=== PATIENT | male | born 1950 | race Caucasian/White ===

== ENCOUNTER 2021-02-21 11:13 | Observation (INO) | payer MEDICARE, SELFPAY ==
[2021-02-21] VITALS (15 sets, daily range): BP systolic 91–135; BP diastolic 58–84; PULSE 84–131; RESP 14–21; TEMP 36.6–36.8; O2SAT 95–99; BMI 15.7; BMI 20.9
--- NOTE | 2021-02-21 11:15 | HMH.EDGENADL ---
ED Disposition Clinical Impression: Failure to thrive Qualifiers: Failure to thrive age range: in adult Qualified Code(s): R62.7 - Adult failure to thrive Urinary tract infection Qualifiers: Urinary tract infection type: acute cystitis Hematuria presence: without hematuria Qualified Code(s): N30.00 - Acute cystitis without hematuria Disposition: Admitted As Inpatient Condition on Discharge: Good - Critical Care Critical Care Time: No Attestation: On , the high probability of a clinically significant, sudden or life threatening deterioration of the following system(s) required my full and direct attention, intervention and personal management. The time I documented below is in addition to time spent performing reported procedures but includes the following listed in this critical care notation. Medical Decision Making - Franco Inquiry Pt receiving controlled substance: No Vital Signs: 02/21/21 11:13 02/21/21 11:30 02/21/21 12:00 Temperature 97.9 F Temperature Source Oral Pulse Rate 84 Pulse Rate [Left] 112 H Respiratory Rate 19 20 14 Blood Pressure 109/67 L 98/67 L Blood Pressure [Right Arm] 135/84 Blood Pressure Mean [Right Arm] 101 Blood Pressure Source [Right Arm] Automatic Cuff 02 Sat by Pulse Oximetry 98 98 02/21/21 12:30 02/21/21 13:00 02/21/21 14:00 Temperature Temperature Source Pulse Rate 93 H 87 Pulse Rate [Left] Respiratory Rate 17 21 16 Blood Pressure 107/66 L 114/71 91/58 L Blood Pressure [Right Arm] Blood Pressure Mean [Right Arm] Blood Pressure Source [Right Arm] 02 Sat by Pulse Oximetry 97 02/21/21 14:30 02/21/21 15:30 02/21/21 16:00 Temperature Temperature Source Pulse Rate 88 86 98 H Pulse Rate [Left] Respiratory Rate 15 16 15 Blood Pressure 113/65 105/62 L 101/62 L Blood Pressure [Right Arm] Blood Pressure Mean [Right Arm] Blood Pressure Source [Right Arm] 02 Sat by Pulse Oximetry 98 95 02/21/21 16:30 Temperature Temperature Source Pulse Rate Pulse Rate [Left] Respiratory Rate 18 Blood Pressure 101/59 L Blood Pressure [Right Arm] Blood Pressure Mean [Right Arm] Blood Pressure Source [Right Arm] 02 Sat by Pulse Oximetry - Lab Data Lab Results 02/21/21 11:20: WBC 9.2, RBC 4.88, Hgb 14.4, Hct 45.4, MCV 93.0, MCH 29.6, MCHC 31.8, RDW 14.8, Plt Count 169, MPV 9.4, Neut % (Auto) 92.1 H, Lymph % (Auto) 4.8 L, [place] % (Auto) 3.0, Eos % (Auto) 0.0 L, Baso % (Auto) 0.0 L, Neut # (Auto) 8.5 H, Lymph # (Auto) 0.5 L, [place] # (Auto) 0.3, Eos # (Auto) 0.0, Baso # (Auto) 0.0, Total Counted 100, Neutrophils % (Manual) 89 H, Band Neutrophils % 1.0, Lymphocytes % (Manual) 7 L, Monocytes % (Manual) 2, Eosinophils % (Manual) 1, Platelet Estimate Normal 02/21/21 11:20: Sodium 150 H, Potassium 3.7, Chloride 106, Carbon Dioxide 29, Anion Gap 18.7 H, BUN 55 H, Creatinine 1.10, Estimated Creat Clear 45, Estimated GFR 66, Est GFR ( Amer) 80, Glucose 188 H, Calcium 9.7, Total Bilirubin 1.9 H, AST 61 H, ALT 28, Alkaline Phosphatase 134 H, Total Protein 8.4 H, Albumin 4.4, Globulin 4.0 H, Albumin/Globulin Ratio 1.1 02/21/21 13:30: Lactate 4.0 H 02/21/21 14:16: SARS-CoV-2 (PCR) Not detected, Influenza A Untype (PCR) Not detected, Influenza Type B (PCR) Not detected Result diagrams: 02/21/21 11:20 02/21/21 11:20 Orders (Tests/Meds): ED MEDICATIONS Generic Name Dose Route Start Last Admin Trade Name Freq PRN Reason Stop Dose Admin Carbidopa/Levodopa 1 each 02/21/21 21:00 Carbidopa/Levodopa 25/100mg Tablet PO 03/23/21 20:59 BID NGA Dextrose/Sodium Chloride 1,000 mls @ 150 mls/hr 02/21/21 17:13 02/21/21 17:20 Dextrose 5%-0.45% Nacl Iv Soln IV 03/23/21 17:12 75 mls/hr .[id number] NGA Administration Levofloxacin/Dextrose 500 mg in 100 mls @ 100 mls/hr 02/21/21 18:45 02/21/21 19:16 Levaquin 500mg/100ml Premix IV 03/07/21 18:44 100 mls/hr Q24H NGA Administration Ceftriaxone Sodium 1 gm/
--- NOTE | 2021-02-21 11:45 | XR_ITS ---
PROCEDURE: XR CHEST PORTABLE CLINICAL HISTORY: Infectious workup COMPARISON: CR XR CHEST PORTABLE from 03/22/2019 FINDINGS: The cardiomediastinal silhouette and pulmonary vascularity are within normal limits. The lungs are clear without infiltrates, suspicious nodules, or pleural effusions. No acute bony abnormalities. IMPRESSION: No acute findings. Dictated by: Suresh Ge MD 02/21/2021 13:04 Suresh Ge MD in OV 02/21/2021 13:04
[2021-02-21 12:04] LABS: Hematocrit 45.4 % (42.0-52.0); Hemoglobin 14.4 g/dL (14.1-18.0); Lymphocytes # 0.5 K/mm3 (0.7-4.5); Lymphocytes % 4.8 % (10-50); Mean Corpuscular HGB Conc 31.8 g/dL (31.8-35.4); Mean Corpuscular Hemoglobin 29.6 pg (27.0-31.2); Mean Platelet Volume 9.4 fl (7.4-10.4); Monocytes # 0.3 K/mm3 (0.1-1.0); Neutrophils # 8.5 K/mm3 (1.8-7.8); Neutrophils % 92.1 % (37.0-80.0); Platelet Count 169 K/mm3 (142-424); Potassium 3.7 mmoL/L (3.5-5.1); Red Blood Count 4.88 M/mm3 (4.60-6.20); Red Cell Distribution Width 14.8 % (11.5-17.5); White Blood Count 9.2 K/mm3 (4.8-10.8)
--- NOTE | 2021-02-21 12:05 | PC.NURSE ---
Rad at bedside
[2021-02-21 12:06] LABS: MANUAL DIFFERENTIAL MANUAL DIFFERENTIAL (MANUAL DIFF)
[2021-02-21 12:07] LABS: Alanine Aminotransferase 28 U/L (12-78); Albumin Level 4.4 g/dl (3.5-5.0); Albumin/Globulin Ratio 1.1 (1.1-1.8); Alkaline Phosphatase 134 U/L (38-126); Aspartate Amino Transferase 61 U/L (17-59); Bilirubin,Total 1.9 mg/dl (0.2-1.3); Blood Urea Nitrogen 55 mg/dl (9-20); Calcium 9.7 mg/dl (8.4-10.2); Carbon Dioxide 29 mmol/L (22.0-30.0); Creatinine Clearance Estimated 45 mL/min (50-200); Estimated Glomerular Filt Rate 66 ml/min (>60); GFR (African American) 80 ML/MIN (>60); Glucose 188 mg/dl (74-100); Total Protein,Serum 8.4 g/dl (6.3-8.2)
[2021-02-21 12:08] LABS: Sodium 150 mmol/L (136-145)
--- NOTE | 2021-02-21 12:08 | PC.NURSE ---
Sodium called to Yaa Fernandez, building drafter
--- NOTE | 2021-02-21 12:10 | PC.NURSE ---
attempted to straight cath patient. no urine output after insertion. MD notified and aware
[2021-02-21 12:11] LABS: Anion Gap 18.7 mEq/L (5-15); Chloride 106 mmol/L (98-107)
[2021-02-21 12:23] LABS: Eosinophils % 1 % (0-3); Lymphocytes % 7 % (10-50); Monocytes % 2 % (2-9); Neutrophils % 89 % (42-76); Total Cells Counted 100
[2021-02-21 12:24] LABS: Platelet Estimate Normal
--- NOTE | 2021-02-21 12:35 | CT_ITS ---
PROCEDURE: CT HEAD/BRAIN WO CON CLINICAL INDICATION: Concern for cancer / new seizure today COMPARISON: No exams were available for comparison TECHNIQUE: Axial images obtained. All CT scans at the facility use one or more dose reduction, viz: automated exposure control, ma/kV adjustment per patient size (including targeted exams where dose is matched to indication, i.e. head), or iterative reconstruction technique. FINDINGS: No midline shift, mass effect, intracranial hemorrhage, hydrocephalus, or extra-axial fluid collection is evident. There is generalized atrophy with hypoattenuation of the periventricular white matter consistent with microangiopathic changes.. Hypodensity in the right basal ganglia suggesting old lacunar infarction or choroidal fissure cyst the calvarium has an unremarkable appearance. No mastoid effusion. No sinus air-fluid level. IMPRESSION: No acute finding. If there is concern for metastatic disease then, CT with contrast or MRI may provide further evaluation. Dictated by: Suresh Ge MD 02/21/2021 13:01 Suresh Ge MD in [facility] 02/21/2021 13:01
--- NOTE | 2021-02-21 14:11 | PC.NURSE ---
SHAJI BUSH speaking with Dr Robledo
[2021-02-21 14:32] LABS: Coronavirus 19, PCR Not Detected (NotDetected); Influenza A, PCR Not Detected (NotDetected); Influenza B, PCR Not Detected (NotDetected)
--- NOTE | 2021-02-21 16:32 | PC.NURSE ---
report called to JACQUIE Sena
--- NOTE | 2021-02-21 16:57 | HMH.HP ---
*Admission Date: 02/21/21 <Yudy Jacobs - 02/21/21 17:20> *Chief complaint: possible seizure; weakness; FTT <Yudy Jacobs - 02/21/21 17:20> *History of present illness: Mr. Taylor is a 71-year-old male patient with a history of Parkinson's disease, frequent urinary tract infections, sudden weight loss,-year-old cognitive disorder, thrombocytopenia, headaches, anxiety, arthritis, depression, dysphagia, and hypokalemia who presented to [facility] emergency room with his daughter. His daughter states they were getting him in her out of the car when his legs gave way and he began to tremble as if he were having a seizure. She was afraid he was having a stroke. She states she has not been eating or drinking for the last 2 to 3 days but has had a decline over the past month with severe weight loss. He has complained of abdominal pain but has not had any vomiting and his bowels did continue to move. His daughter states that with x-ray and mass was observed. Attempt was made to do colonoscopy and she is unaware of the exact results of this. She was told that there was nothing to do for him. Her family doctor has been trying to get Mr. Taylor into the nursing facility for the last year. Patient denies chest pain, shortness of breath, but does indicate he has had some discomfort in his abdomen. With evaluation in the emergency room patient was found to be afebrile. Sodium was elevated with a elevated lactate at 4. Urinalysis is pending. Renal function also indicates dehydration. He was given a liter of IV fluids and a dose of Rocephin IV. Patient was admitted for further evaluation and treatment. Also to note chest x-ray showed no acute findings and CT of the head revealed no acute findings but generalized atrophy and suggestion of an old lacunar infarction. <Yudy Jacobs - 02/21/21 17:20> [facility] History Medical History: Reports:: Anxiety, Dementia, Depression Denies:: Coronary Artery Disease, Cerebrovascular Accident, Diabetes Mellitus Type 2, Myocardial Infarction <Wanda Jacobshy - 02/21/21 17:20> *Have you ever received a pneumonia vaccine?: No <Yudy Jacobs 02/21/21 17:20> *Have you received a flu vaccine this season?: No <Yudy Jacobs 02/21/21 17:20> Other Medical History: Reports: Other (Parkinson's disease) <Evens Robledo 02/21/21 21:15> Reports: Arthritis, Cataracts <Yudy Jacobs 02/21/21 17:20> Other Surgeries: Yes: No Previous Surgery <Yudy Jacobs 02/21/21 17:20> - *Social History Smoking Status: Never smoker <Yudy Jacobs 02/21/21 17:20> Alcohol Intake: never <Yudy Jacobs 02/21/21 17:20> *Occupational Status:: retired (lokie driver), [facility] 17:20> Housing: house <Yudy Jacobs 02/21/21 17:20> Household Members: family <Yudy Jacobs 02/21/21 17:20> *Travel in the last 8 weeks: None <[facility] 02/21/21 17:20> Family Hx:: Heart Attack <Yudy Jacobs 02/21/21 17:20> Review of Systems - Constitutional Reports fatigue, Reports lack of energy, Reports weight loss <Wanda Jacobshy 02/21/21 17:20> - Eyes Denies change in vision <Wanda Jacobshy 02/21/21 17:20> - ENT Reports difficulty swallowing, Denies ear pain, Denies sore throat <Wanda Jacobshy 02/21/21 17:20> - *Cardiovascular Denies chest pain, Denies shortness of breath, Denies leg swelling <[facility] 02/21/21 17:20> - *Respiratory Reports cough, Denies chest congestion, Denies shortness of breath <[facility] 02/21/21 17:20> - *Gastrointestinal Reports abdominal pain, Reports change in bowel habits, Reports difficulty swallowing, Reports incontinent of stools, Denies vomiting blood, Denies nausea, Denies vomiting <Yudy Jacobs 02/21/21 17:20> - *Genitourinary Reports urinary incontinence <Wanda Jacobshy 02/21/21 17:20> - *Musculoskeletal Reports abnormal walking, Reports joint pain, Reports decreased muscle mass, R
[2021-02-21 17:35] LABS: Reflex Lactic Add Lactic Reflex
[2021-02-21 17:57] LABS: Microscopic, Urine URINE MICROSCOPIC (MICROSCOPIC)
[2021-02-21 17:58] LABS: Appearance,Urine SL CLOUDY (Clear); Blood, Urine Negative (Negative); Color,Urine BROWN (Yellow); Glucose,Urine (UA) Negative (Negative); Ketones,Urine TRACE (Negative); Leukocyte Esterase,Urine 1+ (Negative); Nitrate,Urine POSITIVE (Negative); Protein,Urine Negative (Negative); Specific Gravity, Urine 1.025 (1.005-1.030)
[2021-02-21 18:14] LABS: Bilirubin,Urine 1+ (Negative)
[2021-02-21 18:15] LABS: Bacteria,Urine Trace /lpf; RBC,Urine Occasional #/hpf (0-3)
[2021-02-21 18:26] LABS: Lactic Acid Follow Up (RFLX 1) 1.1 mmol/L (0.7-2.1)
--- NOTE | 2021-02-21 19:10 | PC.NURSE ---
Pt arrived to floor at 1648. Pt speech is incoherent. Pts daughter/POA provided pt information. Daughter reports pt is very confused and is oriented x0 and she is unable to care for him appropriately. Pt has tolerated RA well with sats in high 90s. Daughter currently at bedside. Call light within reach. Will continue to monitor.
--- NOTE | 2021-02-21 19:27 | HMH.PHAVTE ---
[facility] Pharmacy VTE Monitoring - Patient Demographics Admission date: 02/21/21 Report Date: 02/21/21 Time: 19:27 Allergies/Adverse Reactions: Patient Allergies No Known Allergies Allergy (Verified 03/22/19 18:37) Height: 1.68 m Weight: 58.967 kg Patient Problems: Current Active Problems Dehydration (Acute) Failure to thrive (Acute) Abdominal pain (Acute) Parkinsons disease (Acute) Arthritis (Acute) Depression (Acute) - VTE Risk Labs: VTE Related Lab Results Hgb 14.4 g/dL (14.1-18.0) 02/21/21 11:20 Hct 45.4 % (42.0-52.0) 02/21/21 11:20 Plt Count 169 K/mm3 (142-424) 02/21/21 11:20 BUN 55 mg/dl (9-20) H 02/21/21 11:20 Creatinine 1.10 mg/dl (0.66-1.25) 02/21/21 11:20 Estimated Creat Clear 45 mL/min (50-200) 02/21/21 11:20 VTE Risk Level: Moderate Risk Clinical Trial Participant: No - Prophylaxis VTE Prophylaxis Ordered?: Yes Types of VTE Prophylaxis: TEDS Knee High
[2021-02-22 04:00] VITALS: BP 110/64; PULSE 66; RESP 18; TEMP 36.6; O2SAT 98
[2021-02-22 05:21] VITALS: BMI 20.9
--- NOTE | 2021-02-22 06:00 | PC.NURSE ---
Pt opens his eyes to name and has made some clear and some garbled speech. Pt did not pass bedside swallow eval d/t not following all commands. Pt has attempted to change position in bed a few times, staff assisted in turning pt q2. He has said pepsi and toes very clearly when asking of needs or if he is in pain. Ron cath draining drl ylw/brownish urine.
[2021-02-22 07:19] LABS: Basophils % 0.1 % (0.1-2.0); Eosinophils % 0.5 % (0.1-12.0); Hematocrit 34.1 % (42.0-52.0); Lymphocytes # 1.2 K/mm3 (0.7-4.5); Lymphocytes % 21.9 % (10-50); Mean Corpuscular HGB Conc 33.2 g/dL (31.8-35.4); Mean Corpuscular Hemoglobin 30.4 pg (27.0-31.2); Mean Corpuscular Volume 91.7 fl (80-94); Mean Platelet Volume 9.5 fl (7.4-10.4); Monocytes # 0.3 K/mm3 (0.1-1.0); Monocytes % 5.3 % (1.7-9.3); Neutrophils # 3.9 K/mm3 (1.8-7.8); Neutrophils % 72.2 % (37.0-80.0); Platelet Count 80 K/mm3 (142-424); Red Blood Count 3.72 M/mm3 (4.60-6.20); White Blood Count 5.4 K/mm3 (4.8-10.8)
[2021-02-22 07:37] LABS: Chloride 110 mmol/L (98-107); Sodium 144 mmol/L (136-145)
[2021-02-22 07:38] LABS: Potassium 3.2 mmoL/L (3.5-5.1)
[2021-02-22 07:40] LABS: Anion Gap 8.2 mEq/L (5-15); Blood Urea Nitrogen 40 mg/dl (9-20); Carbon Dioxide 29 mmol/L (22.0-30.0); Creatinine Clearance Estimated 58 mL/min (50-200); Estimated Glomerular Filt Rate 96 ml/min (>60); GFR (African American) 116 ML/MIN (>60)
[2021-02-22 07:41] LABS: Calcium 8.4 mg/dl (8.4-10.2); Glucose 96 mg/dl (74-100); Magnesium 1.8 mg/dl (1.6-2.3)
[2021-02-22 08:00] VITALS: BP 118/57; PULSE 54; RESP 16; TEMP 36.6; O2SAT 100
[2021-02-22 08:10] LABS: Thyroid Stimulating Hormone 0.22 uIU/mL (0.465-4.68)
[2021-02-22 08:16] LABS: Hemoglobin 11.3 g/dL (14.1-18.0)
--- NOTE | 2021-02-22 08:37 | HMH.ACPN2 ---
<Yudy Jacobs - Last Filed: 02/22/21 08:37> Internal Medicine - PN: Subj *Date: 02/22/21 *Time: 08:37 Interval history: Patient states he does not feel well. He denies chest pain. He states his breathing is doing well. He would like something to drink and something to eat. Per nursing: He has been confused. He is easier to understand but still speech is difficult. They are afraid to attempt to feed him or allow him to drink. He continues with a Ron catheter to bedside drainage. He has hematuria. Exam Vital signs and Labs for Last 24 Hours: Temp Pulse Resp BP Pulse Ox 97.9 F 66 18 110/64 98 02/22/21 04:00 02/22/21 04:00 02/22/21 04:00 02/22/21 04:00 02/22/21 04:00 Laboratory Results - last 24 hr 02/21/21 11:20: WBC 9.2, RBC 4.88, Hgb 14.4, Hct 45.4, MCV 93.0, MCH 29.6, MCHC 31.8, RDW 14.8, Plt Count 169, MPV 9.4, Neut % (Auto) 92.1 H, Lymph % (Auto) 4.8 L, [place] % (Auto) 3.0, Eos % (Auto) 0.0 L, Baso % (Auto) 0.0 L, Neut # (Auto) 8.5 H, Lymph # (Auto) 0.5 L, [place] # (Auto) 0.3, Eos # (Auto) 0.0, Baso # (Auto) 0.0, Total Counted 100, Neutrophils % (Manual) 89 H, Band Neutrophils % 1.0, Lymphocytes % (Manual) 7 L, Monocytes % (Manual) 2, Eosinophils % (Manual) 1, Platelet Estimate Normal 02/21/21 11:20: Sodium 150 H, Potassium 3.7, Chloride 106, Carbon Dioxide 29, Anion Gap 18.7 H, BUN 55 H, Creatinine 1.10, Estimated Creat Clear 45, Estimated GFR 66, Est GFR ( Amer) 80, Glucose 188 H, Calcium 9.7, Total Bilirubin 1.9 H, AST 61 H, ALT 28, Alkaline Phosphatase 134 H, Total Protein 8.4 H, Albumin 4.4, Globulin 4.0 H, Albumin/Globulin Ratio 1.1 02/21/21 13:30: Lactate 4.0 H 02/21/21 14:16: SARS-CoV-2 (PCR) Not detected, Influenza A Untype (PCR) Not detected, Influenza Type B (PCR) Not detected 02/21/21 17:50: Urine Color Brown, Urine Appearance Sl cloudy, Urine pH 6.0, Ur Specific [place] 1.025, Urine Protein Negative, Urine Glucose (UA) Negative, Urine Ketones Trace, Urine Blood Negative, Urine Nitrate Positive, Urine Bilirubin 1+ A, Urine Urobilinogen 4.0, Ur Leukocyte Esterase 1+ A, Urine RBC Occasional, Urine WBC 5-10, Ur Squamous Epith Cells None, Urine Bacteria Trace 02/21/21 18:06: Lactate 1.1 02/22/21 06:28: WBC 5.4 D, RBC 3.72 L, Hgb 11.3 L D, Hct 34.1 L, MCV 91.7, MCH 30.4, MCHC 33.2, RDW 15.0, Plt Count 80 L D, MPV 9.5, Neut % (Auto) 72.2, Lymph % (Auto) 21.9, [place] % (Auto) 5.3, Eos % (Auto) 0.5, Baso % (Auto) 0.1, Neut # (Auto) 3.9, Lymph # (Auto) 1.2, [place] # (Auto) 0.3, Eos # (Auto) 0.0, Baso # (Auto) 0.0 02/22/21 07:10: Sodium 144, Potassium 3.2 L, Chloride 110 H, Carbon Dioxide 29, Anion Gap 8.2, BUN 40 H D, Creatinine 0.80 D, Estimated Creat Clear 58, Estimated GFR 96, Est GFR ( Amer) 116 D, Glucose 96 D, Calcium 8.4, Phosphorus 2.0 L, Magnesium 1.8, TSH 0.22 L I & O for Last 24 hours: Intake & Output 02/19/21 02/20/21 02/21/21 02/22/21 11:59 11:59 11:59 11:59 Intake Total 1170 / 1170 Balance 1170 / 1170 Weight 110 lb 130 lb - Constitutional no acute distress Comments: Lying comfortably in the bed. - *Routine Respiratory Exam Present: diminished air movement (Posteriorly) - *Routine Cardiovascular Exam Present: irregular rhythm - *Routine Abdominal Exam Present: soft, normoactive bowel sounds, other (Scaphoid). Absent: tenderness - *Routine Extremities Exam Absent: edema, calf tenderness - *Routine Neurological Exam Present: alert. Absent: normal speech (Soft bit easier to understand.) Assessment and Plan (1) Dehydration Status: Acute Category: Medical Code(s): E86.0 - Dehydration (2) Failure to thrive Status: Acute Category: Medical (3) Abdominal pain Status: Acute Category: Medical Code(s): R10.9 - Unspecified abdominal pain (4) Parkinsons disease Status: Acute Category: Medical Code(s): G20 - Parkinson's disease (5) Arthritis Status: Acute Category: Medical Code(s): M19.90 - Unspecified osteoarthritis, unspe
--- NOTE | 2021-02-22 09:33 | SW/DCPLANNER ---
Addendum entered by [facility] 02/24/21 09:13: I have notified Liya with [facility] that this patient is not stable for discharge at this time. I also called and informed patients daughter (Conchita [phone]). Addendum entered by [facility] 02/23/21 14:28: Dr Robledo has stated that patient will not discharge till tomorrow. Patients nurse (Mattie) will inform patients daughter and I have called Liya and left a VM for her regarding situation. Addendum entered by [facility] 02/23/21 11:27: Patients daughter is willing to transport patient to [facility]. Addendum entered by [facility] 02/23/21 11:21: Liya has stated that she can accept this patient today w/ an additional negative COVID swab. I will contact patients family. Addendum entered by [facility] 02/23/21 10:10: Liya has called and stated that she is continuing to review patient information at this time. Addendum entered by [facility] 02/22/21 14:02: PT/OT evaluation has been faxed to [facility] at [facility]. Original Note: I spoke with this patients daughter (Conchita [phone]) regarding discharge plans for this patient. Conchita stated that patients resides in [place] with his granddaughter, her and their child. Conchita stated that several family members are taking turns caring for patient at home but are in need of placement. Conchita has stated that patient has been with Hospice in the past but they were dropped due to the need of bathing patients daily. Patients daughter stated that she has been searching for placement for this patient for the past two months and is open to go anywhere. [place] and [place] are not in network with patients insurance (if able to be skilled) and [facility] is not interested in shelter placement, [facility] will not accept due to patient not being vaccinated and [facility] are still not accepting new referrals. Patient information has been faxed to Liya with [facility] (daughter concurred with this facility). I will follow up with Liya once patient information is reviewed. MD will order PT/OT evaluation today to see if patient can be skilled.
[2021-02-22 12:00] VITALS: BP 121/69; PULSE 71; RESP 16; TEMP 36.6; O2SAT 98
[2021-02-22 12:32] VITALS: BMI 20.9
--- NOTE | 2021-02-22 12:42 | DIET.NUTRFU ---
Addendum entered by Conchita Mcintyre 02/23/21 12:44: Regular diet given per ENFORCEMENT MANAGER, chop meats for ease of eating and TID supplements added to order. Pt does drink supplements at home but states he has had minimal intake for the past month. Diet edu/counseling provided (written and basic to pt) for malnutrition and dementia. Original Note: Nutritional assessment, IP/consult completed. Pt with severe malnutrition rt dementia and possible malignancy with loss 62% BW past 2y. He is receiving D5 fluids, dehydration improved. ENFORCEMENT MANAGER to see him, upon diet being given recommend no restrictions, will add supplementation TID. Encourage/cue at meal times observing aspiration precautions and prioritizing supplements as well as protein foods. Will provide diet edu/counseling to family as appropriate. Following further findings, care plans, nutritional needs to alter nutritional care plan as indicated.
--- NOTE | 2021-02-22 13:27 | HMH.OTEV ---
OT Inpatient Evaluation Rehab OT IP Evaluation Start: 02/22/21 11:09 Freq: ONCE Status: Complete Protocol: Document 02/22/21 13:23 [place] (Rec: 02/22/21 13:26 [facility] [id number]) Rehab OT IP Assessment Subjective History Pt oriented x 2 on arrival. Pt agreeable to engage in therapy evaluation. Pt was admitted via ED on 02/21/21 due to possible Seizure. Pt has a past medical history of Parkinson's disease, frequent urinary tract infections, sudden weight loss,-year-old cognitive disorder, thrombocytopenia, headaches, anxiety, arthritis, depression , dysphagia, and hypokalemia. Pt reports he lives with his daughter. He claims he does require assistance with all ADLS. He is dependent upon her for IADLS. He explains he normally stays in a wheelchair, but is able to transer himself short distances with walker. Pt is very hard to understand at times verbally. Subjective She helps. Objective Patient Orientation Person,Birthday Upper Extremity Gross ROM Mod Limitation 50% Shoulder ROM Limitations Muscle Weakness Elbow ROM Limitations Muscle Weakness Wrist Limitations of Range of Motion Muscle Weakness Bed Mobility bed mobility-scooting,bed mobility - supine/sit,bed mobility - rolling Assist Level Minimal x 1 (25% assist) Transfer Training Sit/Stand Transfer Assist Level Minimal x 1 (25% assist) Chair Transfer Ability Minimal x 1 (25% assist) Chair Transfer Technique Sit to/from Ambulatory Rehab OT IP prob,goals,plan Problems Date of Evaluation: 02/22/21 OT IP Problems Bed Mobility,Transfers,Gait, Balance,Self care,Safety Rehab Potential Rehab Potential Good Equipment Needs Assistive Devices Rolling / Wheeled Walker Plan OT intervention Plan Bed Mobility,Transfers,Gait, Balance,Self care,Safety, Therapeutic Exercise OT Plan Frequency BID Duration
--- NOTE | 2021-02-22 13:55 | HMH.PTEV ---
Physical Therapy Evaluation Rehab PT IP Evaluation Start: 02/22/21 11:09 Freq: ONCE Status: Active Protocol: Document 02/22/21 13:37 [facility] (Rec: 02/22/21 13:43 [facility] [id number]) Subjective/History History History Mr. Taylor is a 71-year-old male patient with a history of Parkinson's disease, frequent urinary tract infections, sudden weight loss,-year-old cognitive disorder, thrombocytopenia, headaches, anxiety, arthritis, depression , dysphagia, and hypokalemia who presented to [facility] emergency room with his daughter. His daughter states they were getting him in her out of the car when his legs gave way and he began to tremble as if he were having a seizure. She was afraid he was having a stroke. She states she has not been eating or drinking for the last 2 to 3 days but has had a decline over the past month with severe weight loss. copied from H&P Subjective Subjective Pt reports c/o abdominal pain - some difficulty in understanding all of pt's communication Rehab PT IP Eval Objective Appearance Patient Behavior Appropriate,Cooperative Patient Orientation Name,Birthday Difficulty following instructions none Speech Pattern Garbled,Mumbled Ambulation Patient Able to Ambulate Yes Ambulation Observation IP General Gait Pattern Observation Wide Based Gait,Shuffling Step Ambulation Distance (feet) 2 Ambulation Assistive Device None Ambulation Ability Contact Guard/Hand Hold Balance Ability to Arise Unable Sitting Balance Steady, safe Standing Balance Unsteady Dynamic Sitting Balance Ability Fair Dynamic Standing Balance Ability Poor Transfers Bed Transfer Ability Minimal x 1 (25% assist) Chair Transfer Ability Minimal x 1 (25% assist) Sit to Stand Bed Transfer Ability Minimal x 2 (25% assist) Sit to Stand Chair Transfer Ability Minimal x 2 (25% assist) Rehab PT IP prob,goals,plan Problems Date of Evaluation:
[2021-02-22 16:00] VITALS: BP 98/49; PULSE 87; RESP 17; TEMP 37.1; O2SAT 99
--- NOTE | 2021-02-22 16:31 | PC.NURSE ---
TRUCK SUPERVISOR AT BEDSIDE FOR SWALLOW STUDY. STATED PATIENT CAN HAVE REGULAR DIET WITH THIN LIQUIDS. TRUCK SUPERVISOR STATED SHE WILL PLACE DIET ORDER REFLECTING THIS.
--- NOTE | 2021-02-22 16:52 | HMH.SLDYSPHA ---
Speech & Language Evaluation Speech/Language Dysphagia Evaluation Start: 02/22/21 16:36 Freq: ONCE Status: Active Protocol: Document 02/22/21 16:36 HARMANROMÁN (Rec: 02/22/21 16:50 AIXA [id number]) Dysphagia Assess/Goals/Plan Assessment Date of Evaluation: 02/22/21 Evaluation Type Initial Certification Assessment/Problems Parkinson's, dysphagia Does Patient Qualify for Service No Qualify/Failure Comment Based on results of bedside swallow assessment. Recommendations PHYSICIAN CERTIFICATION: The specified therapy services are required, authorized, and reviewed every 30 days. Diet Recommendations Normal Liquid Type Recommendations Normal/Thin SL Swallow Guidelines Standard Aspiration Prec. Dysphagia Swallow Precautions/Strategies Sitting Upright (90 deg),Small Bites and Sips Place Food on Either side of Mouth Plan Pt/Guardian verbally ack understanding Yes of dx/prognosis/goals Pt/Guardian verbally ack understanding Yes of/consent to tx prog G -code Required No Education Instructions provided Diet recommendations discussed with patient and nursing. Pt/Caregiver able to recall information Able to recall/restate, Reinforcement needed Reinforcement needed Yes General Information General Current Food Consistancy NPO Dentition Poor Dentition Oxygen Status Room Air Facial Symmetry Symmetrical Ability to Follow Directions Good Communication Ability Moderate Impairment Dysphagia:Food Presentation Evaluation Food Type Pureed,Mechanical Soft,Regular ,Liquid,Pudding Dysphagia Evaluation Summary CSE completed to analyze and assess oropharyngeal swallow. Trialed thin liquids via tsp, cup, straw, puree, pudding, mechanical soft, and regular solid. No overt s/sxs of aspiration noted, even with large consecutive drinks of thin. Mastication was observed and appropriate for mechanical soft and regular solids. No oral residue noted during the assessment. Recommending: regular diet, thin liquids. No further skilled speech therapy services warranted at this time. Stroke
[2021-02-22 20:00] VITALS: BP 118/73; PULSE 70; RESP 16; TEMP 37; O2SAT 99
[2021-02-23 04:00] VITALS: BP 105/89; PULSE 69; RESP 16; TEMP 36.5; O2SAT 97
--- NOTE | 2021-02-23 05:35 | PC.NURSE ---
No acute changes. Pt has rested well this shift. No complaints stated. VSS. Will continue to monitor.
[2021-02-23 06:45] LABS: Basophils % 0.2 % (0.1-2.0); Eosinophils % 1.2 % (0.1-12.0); Hematocrit 32.4 % (42.0-52.0); Hemoglobin 10.6 g/dL (14.1-18.0); Lymphocytes # 1.1 K/mm3 (0.7-4.5); Lymphocytes % 42.8 % (10-50); Mean Corpuscular HGB Conc 32.8 g/dL (31.8-35.4); Mean Corpuscular Hemoglobin 30.3 pg (27.0-31.2); Mean Corpuscular Volume 92.3 fl (80-94); Mean Platelet Volume 9.2 fl (7.4-10.4); Monocytes # 0.1 K/mm3 (0.1-1.0); Monocytes % 5.4 % (1.7-9.3); Neutrophils # 1.2 K/mm3 (1.8-7.8); Neutrophils % 50.3 % (37.0-80.0); Platelet Count 59 K/mm3 (142-424); Red Blood Count 3.51 M/mm3 (4.60-6.20); White Blood Count 2.5 K/mm3 (4.8-10.8)
[2021-02-23 07:04] LABS: Alanine Aminotransferase 36 U/L (12-78); Albumin Level 2.7 g/dl (3.5-5.0); Alkaline Phosphatase 83 U/L (38-126); Anion Gap 8.3 mEq/L (5-15); Aspartate Amino Transferase 40 U/L (17-59); Bilirubin,Total 0.5 mg/dl (0.2-1.3); Blood Urea Nitrogen 20 mg/dl (9-20); Calcium 7.9 mg/dl (8.4-10.2); Carbon Dioxide 30 mmol/L (22.0-30.0); Chloride 105 mmol/L (98-107); Creatinine Clearance Estimated 58 mL/min (50-200); Estimated Glomerular Filt Rate 134 ml/min (>60); GFR (African American) 162 ML/MIN (>60); Globulin 2.7 g/dL (1.3-3.2); Glucose 109 mg/dl (74-100); Potassium 3.3 mmoL/L (3.5-5.1); Sodium 140 mmol/L (136-145); Total Protein,Serum 5.4 g/dl (6.3-8.2)
[2021-02-23 07:23] LABS: T4 (Thyroxine) 7.4 ug/dl (5.53-11.0)
[2021-02-23 07:50] VITALS: BP 135/82; PULSE 98; RESP 16; TEMP 36.4; O2SAT 100
--- NOTE | 2021-02-23 09:13 | HMH.ACPN2 ---
<Yudy Jacobs - Last Filed: 02/23/21 09:13> Internal Medicine - PN: Subj *Date: 02/23/21 *Time: 09:13 Interval history: Patient states he is feeling better this morning. He denies chest pain shortness of breath. He states he ate some breakfast and was hungry. He denies any nausea or abdominal pain. Exam Vital signs and Labs for Last 24 Hours: Temp Pulse Resp BP Pulse Ox 97.6 F 98 H 16 135/82 100 02/23/21 07:50 02/23/21 07:50 02/23/21 07:50 02/23/21 07:50 02/23/21 07:50 Laboratory Results - last 24 hr 02/21/21 17:50: Urine Color Brown, Urine Appearance Sl cloudy, Urine pH 6.0, Ur Specific [place] 1.025, Urine Protein Negative, Urine Glucose (UA) Negative, Urine Ketones Trace, Urine Blood Negative, Urine Nitrate Positive, Urine Bilirubin 1+ A, Urine Urobilinogen 4.0, Ur Leukocyte Esterase 1+ A, Urine RBC Occasional, Urine WBC 5-10, Ur Squamous Epith Cells None, Urine Bacteria Trace 02/23/21 06:02: WBC 2.5 L D, RBC 3.51 L, Hgb 10.6 L, Hct 32.4 L, MCV 92.3, MCH 30.3, MCHC 32.8, RDW 15.0, Plt Count 59 L D, MPV 9.2, Neut % (Auto) 50.3, Lymph % (Auto) 42.8, [place] % (Auto) 5.4, Eos % (Auto) 1.2, Baso % (Auto) 0.2, Neut # (Auto) 1.2 L, Lymph # (Auto) 1.1, [place] # (Auto) 0.1, Eos # (Auto) 0.0, Baso # (Auto) 0.0 02/23/21 06:02: Sodium 140, Potassium 3.3 L, Chloride 105, Carbon Dioxide 30, Anion Gap 8.3, BUN 20 D, Creatinine 0.60 L D, Estimated Creat Clear 58, Estimated GFR 134, Est GFR ( Amer) 162 D, Glucose 109 H, Calcium 7.9 L, Total Bilirubin 0.5, AST 40 D, ALT 36 D, Alkaline Phosphatase 83, Total Protein 5.4 L D, Albumin 2.7 L, Globulin 2.7, Albumin/Globulin Ratio 1.0 L, Thyroxine (T4) 7.4 I & O for Last 24 hours: Intake & Output 02/20/21 02/21/21 02/22/21 02/23/21 11:59 11:59 11:59 11:59 Intake Total 1170 / 1170 840 / 840 Output Total 0 / 0 1500 / 1500 Balance 1170 / 1170 -660 / -660 Weight 110 lb 130 lb 130 lb 1.164 oz Microbiology Reports for the Last 24 Hours: Microbiology 02/21/21 17:50 Urine,Catheterized Urine Culture - Preliminary Gram Negative Rods - Constitutional no acute distress Comments: Awake and lying in the bed and appears comfortable - *Routine Respiratory Exam Present: CTA bilaterally (Anteriorly and posteriorly) - *Routine Cardiovascular Exam Present: RRR - *Routine Abdominal Exam Present: soft, normoactive bowel sounds. Absent: tenderness - *Routine Extremities Exam Absent: edema, calf tenderness - *Routine Neurological Exam Present: alert (Much more alert today. Speech is easier to understand) Assessment and Plan (1) Dehydration Status: Acute Category: Medical Code(s): E86.0 - Dehydration (2) Failure to thrive Status: Acute Category: Medical (3) Abdominal pain Status: Acute Category: Medical Code(s): R10.9 - Unspecified abdominal pain (4) Parkinsons disease Status: Acute Category: Medical Code(s): G20 - Parkinson's disease (5) Arthritis Status: Acute Category: Medical Code(s): M19.90 - Unspecified osteoarthritis, unspecified site (6) Depression Status: Acute Category: Medical Code(s): F32.9 - Major depressive disorder, single episode, unspecified (7) Dementia Status: Acute Category: Medical Code(s): F03.90 - Unspecified dementia without behavioral disturbance (8) Hyperthyroidism Status: Acute Category: Medical Code(s): E05.90 - Thyrotoxicosis, unspecified without thyrotoxic crisis or storm (9) Low serum phosphorus for age Status: Acute Category: Medical Code(s): R79.0 - Abnormal level of blood mineral (10) Hypokalemia Status: Acute Category: Medical Code(s): E87.6 - Hypokalemia - Assessment and plan all Dx Assessment and Plan for all problems:: We will continue with current antibiotics and IV fluids. PT and OT evaluation. We will add p.o. potassium. <Evens Robledo - Last Filed: 02/23/21 15:27> Internal Medici
[2021-02-23 12:18] LABS: Coronavirus 19, PCR Not Detected (NotDetected); Influenza A, PCR Not Detected (NotDetected); Influenza B, PCR Not Detected (NotDetected)
[2021-02-23 16:00] VITALS: BP 106/50; PULSE 84; RESP 16; TEMP 36.8; O2SAT 97
--- NOTE | 2021-02-23 19:03 | PC.NURSE ---
pt alert to self, has been up to chair some this shift, has remained on room air, no complaints of pain or SOA
[2021-02-23 20:00] VITALS: BP 110/80; PULSE 72; RESP 19; TEMP 36.6; O2SAT 94
[2021-02-24 04:00] VITALS: BP 99/63; PULSE 58; RESP 16; TEMP 36.5; O2SAT 99
--- NOTE | 2021-02-24 04:14 | PC.NURSE ---
No acute changes noted. Pt has rested well this shift. No complaints voiced. New IV placed. Pt tolerated well. VSS. No concerns at this time. Will continue to monitor.
[2021-02-24 05:18] VITALS: BMI 20.9
[2021-02-24 07:55] LABS: Basophils % 0.3 % (0.1-2.0); Hematocrit 32.1 % (42.0-52.0); Hemoglobin 10.4 g/dL (14.1-18.0); Lymphocytes # 0.8 K/mm3 (0.7-4.5); Lymphocytes % 40.6 % (10-50); Mean Corpuscular HGB Conc 32.6 g/dL (31.8-35.4); Mean Corpuscular Hemoglobin 30.1 pg (27.0-31.2); Mean Corpuscular Volume 92.4 fl (80-94); Mean Platelet Volume 9.5 fl (7.4-10.4); Monocytes # 0.1 K/mm3 (0.1-1.0); Monocytes % 6.2 % (1.7-9.3); Neutrophils % 51.9 % (37.0-80.0); Platelet Count 51 K/mm3 (142-424); Red Blood Count 3.47 M/mm3 (4.60-6.20); Red Cell Distribution Width 14.8 % (11.5-17.5)
[2021-02-24 08:00] VITALS: BP 109/66; PULSE 57; RESP 16; TEMP 37; O2SAT 95
[2021-02-24 08:19] LABS: Blood Urea Nitrogen 15 mg/dl (9-20); Calcium 7.9 mg/dl (8.4-10.2); Carbon Dioxide 27 mmol/L (22.0-30.0); Chloride 109 mmol/L (98-107); Creatinine Clearance Estimated 58 mL/min (50-200); Estimated Glomerular Filt Rate 134 ml/min (>60); GFR (African American) 162 ML/MIN (>60); Glucose 101 mg/dl (74-100); Sodium 142 mmol/L (136-145)
--- NOTE | 2021-02-24 09:16 | HMH.ACPN2 ---
<Dominique Ponce - Last Filed: 02/24/21 09:16> Internal Medicine - PN: Subj *Date: 02/24/21 *Time: 09:16 Interval history: He is sedated this morning. He arouses to voice and will follow simple commands with repeated cueing but does not respond verbally. He shakes his head no when asked if he is having pain. He moves all four extremities spontaneously. Exam Vital signs and Labs for Last 24 Hours: Temp Pulse Resp BP Pulse Ox 98.6 F 57 L 16 109/66 L 95 02/24/21 08:00 02/24/21 08:00 02/24/21 08:00 02/24/21 08:00 02/24/21 08:00 Laboratory Results - last 24 hr 02/23/21 12:13: SARS-CoV-2 (PCR) Not detected, Influenza A Untype (PCR) Not detected, Influenza Type B (PCR) Not detected 02/24/21 07:47: WBC 2.0 L, RBC 3.47 L, Hgb 10.4 L, Hct 32.1 L, MCV 92.4, MCH 30.1, MCHC 32.6, RDW 14.8, Plt Count 51 L, MPV 9.5, Neut % (Auto) 51.9, Lymph % (Auto) 40.6, [place] % (Auto) 6.2, Eos % (Auto) 1.0, Baso % (Auto) 0.3, Neut # (Auto) 1.0 L, Lymph # (Auto) 0.8, [place] # (Auto) 0.1, Eos # (Auto) 0.0, Baso # (Auto) 0.0 02/24/21 07:47: Sodium 142, Potassium 3.0 L, Chloride 109 H, Carbon Dioxide 27, Anion Gap 9.0, BUN 15, Creatinine 0.60 L, Estimated Creat Clear 58, Estimated GFR 134, Est GFR ( Amer) 162, Glucose 101 H, Calcium 7.9 L I & O for Last 24 hours: Intake & Output 02/21/21 02/22/21 02/23/21 02/24/21 11:59 11:59 11:59 11:59 Intake Total 1170 / 1170 840 / 840 1850 / 1850 Output Total 0 / 0 1500 / 1500 3000 / 3000 Balance 1170 / 1170 -660 / -660 -1150 / -1150 Weight 110 lb 130 lb 130 lb 1.164 oz 130 lb 8 oz Microbiology Reports for the Last 24 Hours: Microbiology 02/21/21 17:50 Urine,Catheterized Urine Culture - Final Escherichia coli - Constitutional no acute distress, cachectic - *Routine HEENT Exam ENT: Present: mucous membranes dry - *Routine Respiratory Exam Absent: respiratory distress Comments: generally diminished - *Routine Cardiovascular Exam Present: RRR - *Routine Abdominal Exam Present: soft, normoactive bowel sounds. Absent: tenderness, distended - *Routine Extremities Exam Present: pulses intact. Absent: edema, tenderness - *Routine Neurological Exam Present: moving all extremities drowsy, arouses to voice Assessment and Plan (1) Dehydration Status: Acute Category: Medical Code(s): E86.0 - Dehydration (2) Failure to thrive Status: Acute Category: Medical (3) Abdominal pain Status: Acute Category: Medical Code(s): R10.9 - Unspecified abdominal pain (4) Parkinsons disease Status: Acute Category: Medical Code(s): G20 - Parkinson's disease (5) Arthritis Status: Acute Category: Medical Code(s): M19.90 - Unspecified osteoarthritis, unspecified site (6) Depression Status: Acute Category: Medical Code(s): F32.9 - Major depressive disorder, single episode, unspecified (7) Dementia Status: Acute Category: Medical Code(s): F03.90 - Unspecified dementia without behavioral disturbance (8) Hyperthyroidism Status: Acute Category: Medical Code(s): E05.90 - Thyrotoxicosis, unspecified without thyrotoxic crisis or storm (9) Low serum phosphorus for age Status: Acute Category: Medical Code(s): R79.0 - Abnormal level of blood mineral (10) Hypokalemia Status: Acute Category: Medical Code(s): E87.6 - Hypokalemia (11) Pancytopenia Status: Acute Category: Medical Code(s): D61.818 - Other pancytopenia (12) Impaired mobility Status: Acute Category: Medical Code(s): Z74.09 - Other reduced mobility - Assessment and plan all Dx Assessment and Plan for all problems:: Further per Dr. Robledo. <Evens Robledo - Last Filed: 03/20/21 22:30> Internal Medicine - PN: Subj *Date: 02/24/21 *Time: 22:29 Exam Vital signs and Labs for Last 24 Hours: Temp Pulse Resp BP Pulse Ox 98.6 F 57 L 16 109/66 L 95 02/24/21 08:00 02/24/21 08:00 09
--- NOTE | 2021-02-24 11:19 | HMH.ACPN ---
Internal Medicine - PN: Subj *Date: 02/24/21 *Time: 11:19 Exam Vital signs and Labs for Last 24 Hours: Temp Pulse Resp BP Pulse Ox 98.6 F 57 L 16 109/66 L 95 02/24/21 08:00 02/24/21 08:00 02/24/21 08:00 02/24/21 08:00 02/24/21 08:00 Laboratory Results - last 24 hr 02/23/21 12:13: SARS-CoV-2 (PCR) Not detected, Influenza A Untype (PCR) Not detected, Influenza Type B (PCR) Not detected 02/24/21 07:47: WBC 2.0 L, RBC 3.47 L, Hgb 10.4 L, Hct 32.1 L, MCV 92.4, MCH 30.1, MCHC 32.6, RDW 14.8, Plt Count 51 L, MPV 9.5, Neut % (Auto) 51.9, Lymph % (Auto) 40.6, [place] % (Auto) 6.2, Eos % (Auto) 1.0, Baso % (Auto) 0.3, Neut # (Auto) 1.0 L, Lymph # (Auto) 0.8, [place] # (Auto) 0.1, Eos # (Auto) 0.0, Baso # (Auto) 0.0 02/24/21 07:47: Sodium 142, Potassium 3.0 L, Chloride 109 H, Carbon Dioxide 27, Anion Gap 9.0, BUN 15, Creatinine 0.60 L, Estimated Creat Clear 58, Estimated GFR 134, Est GFR ( Amer) 162, Glucose 101 H, Calcium 7.9 L I & O for Last 24 hours: Intake & Output 02/21/21 02/22/21 02/23/21 02/24/21 23:59 23:59 23:59 23:59 Intake Total 1410 / 1410 1200 / 1200 1250 / 1250 Output Total 0 / 0 2500 / 2500 1999 / 1999 Balance 1410 / 1410 -1300 / -1300 -750 / -750 Weight 58.967 kg 59 kg 59.194 kg Microbiology Reports for the Last 24 Hours: Microbiology 02/21/21 17:50 Urine,Catheterized Urine Culture - Final Escherichia coli Assessment and Plan (1) Dehydration Status: Acute Category: Medical Code(s): E86.0 - Dehydration (2) Failure to thrive Status: Acute Category: Medical (3) Abdominal pain Status: Acute Category: Medical Code(s): R10.9 - Unspecified abdominal pain (4) Parkinsons disease Status: Acute Category: Medical Code(s): G20 - Parkinson's disease (5) Arthritis Status: Acute Category: Medical Code(s): M19.90 - Unspecified osteoarthritis, unspecified site (6) Depression Status: Acute Category: Medical Code(s): F32.9 - Major depressive disorder, single episode, unspecified (7) Dementia Status: Acute Category: Medical Code(s): F03.90 - Unspecified dementia without behavioral disturbance (8) Hyperthyroidism Status: Acute Category: Medical Code(s): E05.90 - Thyrotoxicosis, unspecified without thyrotoxic crisis or storm (9) Low serum phosphorus for age Status: Acute Category: Medical Code(s): R79.0 - Abnormal level of blood mineral (10) Hypokalemia Status: Acute Category: Medical Code(s): E87.6 - Hypokalemia (11) Pancytopenia Status: Acute Category: Medical Code(s): D61.818 - Other pancytopenia (12) Impaired mobility Status: Acute Category: Medical Code(s): Z74.09 - Other reduced mobility The patient's infection will respond to the chosen ABx?: Yes Is the patient receiving the right drug, dose, and route?: Yes Could a more targeted ABx be ordered?: No (LEVAQUIN STOPPED DUE TO RESISTANT E COLI IN URINE)
--- NOTE | 2021-02-24 17:47 | PC.NURSE ---
Pt is alert to self. He has been pleasant and conversing w/staff. He was up to he chair most of the shift and tolerated well. Appetite has been good. Scattered scabbing noted to body. No complaints verbalized.
[2021-02-24 19:30] VITALS: BP 92/53; PULSE 99; RESP 15; TEMP 36.6; O2SAT 97
[2021-02-24 19:35] VITALS: PULSE 99
[2021-02-25 04:00] VITALS: BP 118/67; PULSE 86; RESP 17; TEMP 37.2; O2SAT 99
--- NOTE | 2021-02-25 04:07 | PC.NURSE ---
Patient is alert to self. Patient has rested well this shift. No acute changes noted. VSS, call light within reach.
[2021-02-25 07:35] VITALS: BP 125/72; PULSE 100; RESP 22; TEMP 36.9; O2SAT 99
--- NOTE | 2021-02-25 08:06 | HMH.ACPN2 ---
<Yudy Jacobs - Last Filed: 02/25/21 08:06> Internal Medicine - PN: Subj *Date: 02/25/21 *Time: 08:06 Interval history: Patient states he is doing fine. He feels he is eating without difficulty. He denies chest pain or shortness of breath. Patient does have some abdominal discomfort in the left upper quadrant. He has been out of bed. Exam Vital signs and Labs for Last 24 Hours: Temp Pulse Resp BP Pulse Ox 98.5 F 100 H 22 125/72 99 02/25/21 07:35 02/25/21 07:35 02/25/21 07:35 02/25/21 07:35 02/25/21 07:35 Laboratory Results - last 24 hr 02/24/21 07:47: Sodium 142, Potassium 3.0 L, Chloride 109 H, Carbon Dioxide 27, Anion Gap 9.0, BUN 15, Creatinine 0.60 L, Estimated Creat Clear 58, Estimated GFR 134, Est GFR ( Amer) 162, Glucose 101 H, Calcium 7.9 L I & O for Last 24 hours: Intake & Output 02/22/21 02/23/21 02/24/21 02/25/21 11:59 11:59 11:59 11:59 Intake Total 1170 / 1170 840 / 840 1850 / 1850 3223 / 3223 Output Total 0 / 0 1500 / 1500 3000 / 3000 600 / 600 Balance 1170 / 1170 -660 / -660 -1150 / -1150 2623 / 2623 Weight 130 lb 130 lb 1.164 oz 130 lb 8 oz Microbiology Reports for the Last 24 Hours: Microbiology 02/21/21 17:50 Urine,Catheterized Urine Culture - Final Escherichia coli - Constitutional no acute distress Comments: Sitting up in the bed feeding himself breakfast. He has eaten almost everything on his tray. - *Routine Respiratory Exam Present: CTA bilaterally (Anteriorly and posteriorly) - *Routine Cardiovascular Exam Present: RRR - *Routine Abdominal Exam Present: soft, normoactive bowel sounds, tenderness (Left upper quadrant) - *Routine Extremities Exam Absent: edema, calf tenderness - *Routine Neurological Exam Present: alert Assessment and Plan (1) Dehydration Status: Acute Category: Medical Code(s): E86.0 - Dehydration (2) Failure to thrive Status: Acute Category: Medical (3) Abdominal pain Status: Acute Category: Medical Code(s): R10.9 - Unspecified abdominal pain (4) Parkinsons disease Status: Acute Category: Medical Code(s): G20 - Parkinson's disease (5) Arthritis Status: Acute Category: Medical Code(s): M19.90 - Unspecified osteoarthritis, unspecified site (6) Depression Status: Acute Category: Medical Code(s): F32.9 - Major depressive disorder, single episode, unspecified (7) Dementia Status: Acute Category: Medical Code(s): F03.90 - Unspecified dementia without behavioral disturbance (8) Hyperthyroidism Status: Acute Category: Medical Code(s): E05.90 - Thyrotoxicosis, unspecified without thyrotoxic crisis or storm (9) Low serum phosphorus for age Status: Acute Category: Medical Code(s): R79.0 - Abnormal level of blood mineral (10) Hypokalemia Status: Acute Category: Medical Code(s): E87.6 - Hypokalemia (11) Pancytopenia Status: Acute Category: Medical Code(s): D61.818 - Other pancytopenia (12) Impaired mobility Status: Acute Category: Medical Code(s): Z74.09 - Other reduced mobility - Assessment and plan all Dx Assessment and Plan for all problems:: We still have not received records. Patient is stable for discharge to [facility] for ongoing care. <Evens Robledo - Last Filed: 03/20/21 22:29> Internal Medicine - PN: Subj *Date: 02/25/21 *Time: 22:28 Exam Vital signs and Labs for Last 24 Hours: Temp Pulse Resp BP Pulse Ox 98.5 F 100 H 22 125/72 99 02/25/21 07:35 02/25/21 07:35 02/25/21 07:35 02/25/21 07:35 02/25/21 07:35 Assessment and Plan (1) Dehydration Status: Acute Category: Medical Code(s): E86.0 - Dehydration (2) Failure to thrive Status: Acute Category: Medical (3) Abdominal pain Status: Acute Category: Medical Code(s): R10.9 - Unspecified abdominal pain (4) Parkinsons disease Status: Acute Category: Medical Cod
--- NOTE | 2021-02-25 08:21 | HMH.DCSUM ---
General - General Admission date:: 02/21/21 <Evens Robledo - 04/18/21 17:29> 02/21/21 <Yudy Jacobs - 02/25/21 08:33> Discharge date: 02/25/21 <Yudy Jacobs - 02/25/21 08:33> HPI HPI: Mr. Taylor is a 71-year-old male patient with a history of Parkinson's disease, frequent urinary tract infections, sudden weight loss,neuro cognitive disorder, thrombocytopenia, headaches, anxiety, arthritis, depression, dysphagia, and hypokalemia who presented to [facility] emergency room with his daughter. His daughter stated they were getting him out of the car when his legs gave way and he began to tremble as if he were having a seizure. She was afraid he was having a stroke. She stated he has not been eating or drinking for the previous 2 to 3 days with a decline over the past month with severe weight loss. He complained of abdominal pain but was not vomiting and his bowels were moving. His daughter stated that with x-ray a mass was observed. Attempt was made to perform colonoscopy. She did not know the results of this. She was told that there was nothing to do for him. Her family doctor had been trying to get Mr. Taylor into a nursing facility for the past year. Patient denied chest pain, shortness of breath, but did indicate he had some discomfort in his abdomen. With evaluation in the emergency room patient was found to be afebrile. Sodium was elevated with a elevated lactate at 4. Renal function also indicated dehydration. He was given a liter of IV fluids and a dose of Rocephin IV. Patient was admitted for further evaluation and treatment. Also to note chest x-ray showed no acute findings and CT of the head revealed no acute findings but generalized atrophy and suggestion of an old lacunar infarction. <Yudy Jacobs - 02/25/21 08:33> Hospital Course Hospital Course: Patient was continued on Rocephin IV daily along with IV fluids. He ate very well for some of his meals. He was evaluated by speech therapy who recommended a normal diet with standard aspiration precautions. PT and OT were consulted as well. He was able to ambulate and sit up in a chair and sometimes refused to go back to bed. He did deny nausea although he at times complained of abdominal discomfort. Potassium was added for hypokalemia. His speech did improve and overall he was more alert. Labs indicated pancytopenia. There was suspicion for underlying Malignancy. On 02/24/2021 he was not as alert for no obvious reason. Patient became more alert later in the day and was pleasant and conversing with the staff. He set up most of the day in a chair and tolerated well. His appetite was good. On 02/25 patient was doing well. He was eating without difficulty. He denied chest pain and shortness of breath. Vital signs were stable. He was stable to be transferred to rehab. Bed had been obtained by care management at [facility]. To note urine culture revealed E. coli with low colony count. Patient discharged to rehab for ongoing care. See med reconciliation sheet. Follow-up will be at [facility]. See data for specific test results. At time of discharge no outside records had been received <Yudy Jacobs - 02/25/21 08:53> Objective Vital signs: Temp Pulse Resp BP Pulse Ox 98.5 F 100 H 22 125/72 99 02/25/21 07:35 02/25/21 07:35 02/25/21 07:35 02/25/21 07:35 02/25/21 07:35 <Evens Robledo - 04/18/21 17:29> Temp Pulse Resp BP Pulse Ox 98.5 F 100 H 22 125/72 99 02/25/21 07:35 02/25/21 07:35 02/25/21 07:35 02/25/21 07:35 02/25/21 07:35 <Yudy Jacobs - 02/25/21 08:33> Narrative: Exam Vital signs and Labs for Last 24 Hours: Temp Pulse Resp BP Pulse Ox 98.5 F 100 H 22 125/72 99 02/25/21 07:35 02/25/21 07:35 02/25/21 07:35 02/25/21 07:35 02/25/21 07:35 Laboratory Results - last 24 hr 02/24/21 07:47: Sodium 142, Potassium 3.0 L, Chloride
--- NOTE | 2021-02-25 10:19 | SW/DCPLANNER ---
PATIENT IS DISCHARGING TO [facility] TODAY... I SPOKE WITH DAUGHTER, CHIN DUNHAM AND SHE IS TRANSPORTING PATIENT HER FATHER. I HAVE ASKED FOR ELLEN HAILE TO CALL E TO WHAT THE NUMBER TO CALL REPORT AND THE FAX NUMBER ALSO THE THE ACCEPTING MD... WAITING ON A CALLBACK.
== END 2021-02-25 14:10 ==
LOC: ER 14:00 → 2ND 17:30
PROVIDERS: Admitting Provider Family Medicine; Emergency Provider Student in an Organized Health Care Education/Training Program; PCP Nurse Practitioner Family; Visit Provider Family Medicine
DX: E86.0 Dehydration (principal); Z20.822 Contact with and (suspected) exposure to COVID-19; G20 Parkinson's disease; E05.90 Thyrotoxicosis, unspecified without thyrotoxic crisis or storm; E87.6 Hypokalemia; N39.0 Urinary tract infection, site not specified; R62.7 Adult failure to thrive; G40.909 Epilepsy, unspecified, not intractable, without status epilepticus; Z79.899 Other long term (current) drug therapy; R64 Cachexia; Z68.21 Body mass index [BMI] 21.0-21.9, adult; M19.90 Unspecified osteoarthritis, unspecified site; F02.80 Dementia in other diseases classified elsewhere, unspecified severity, without behavioral disturbance, psychotic disturbance, mood disturbance, and anxiety
CPT/HCPCS: G0378; 36415; 70450; 71045; 80048; 80053; 81001; 83605; 83735; 84100; 84436; 84443; 85007; 85025; 87086; 87088; 87186; 92610; 96365; 96367; 97110; 97162; 97166; 97530; 99281; J1956; U0003